=== PATIENT | male | born 1935 | race Caucasian/White ===

== ENCOUNTER 2016-10-20 23:39 | Emergency (ER) | payer OTHER ==
[~2016-10-20] VITALS: Ht 167.6 cm; Wt 74.4 kg
[2016-10-20 23:54] VITALS: BP 159/75; PULSE 68; RESP 18; TEMP 98.1; O2SAT 96
--- NOTE | 2016-10-21 00:31 | PD ---
HPI Chief Complaint: [facility] Problem Time Seen by Provider: 00:24 Travel History International Travel<30 days: No Contact w/Intl Traveler<30days: No Traveled to known affect area: No History of Present Illness HPI The patient is a 81-year-old male that has an indwelling catheter and it got stopped up tonight. He states that he needs to change his catheter every month and it is about time for her to be changed anyway. 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 Instead of opening up his urethra every 6 months it was found better to just leave the catheter in place. He knows when he has a urinary tract infection and denies any dysuria, frequency or urgency or other symptoms of urinary infection. PFSH Social History Tobacco Use: No Review of Systems Except as stated in HPI: all other systems reviewed are Neg Physical Exam Narrative GENERAL: Well-nourished, well-developed patient in no apparent distress. His vital signs show blood pressure 159/75 but are otherwise normal. SKIN: Focused skin assessment warm/dry. HEAD: Normocephalic. EYES: No scleral icterus. No injection or drainage. NECK: Supple, trachea midline. No JVD or lymphadenopathy. CARDIOVASCULAR: Regular rate and rhythm without murmurs, gallops, or rubs. RESPIRATORY: Breath sounds equal bilaterally. No accessory muscle use. GASTROINTESTINAL: Abdomen soft, non-tender, nondistended. The bladder is not distended at this time. MUSCULOSKELETAL: No cyanosis, or edema. BACK: Nontender without obvious deformity. No CVA tenderness. Data Data Last Documented VS Vital Signs Date Time Temp Pulse Resp B/P Pulse Ox O2 Delivery O2 Flow Rate FiO2 10/20/16 23:54 98.1 68 18 159/75 96 Orders Urinary Catheter Insert/Apply (10/21/16 00:24) Urinary Catheter - Remove (10/21/16 00:24) [facility] Medical Decision Making Medical Screen Exam Complete: Yes Emergency Medical Condition: Yes Medical Record Reviewed: Yes Differential Diagnosis Catheter obstruction, need for changing of catheter, UTIunlikely Narrative Course The patient has a catheter obstruction and he needs to have it changed anyway. The catheter will be changed to a 16 Czech which is what he had before. Diagnosis Primary Impression: Catheter (urine) change required Additional Instructions: Good luck with a new catheter. Kaman back if you have any problems. Follow-up with your primary care physician or urologist about this. Med/Other Pt SpecificInfo: No Change to Meds Disposition: 01 DISCHARGE HOME Condition: Stable Manav Francis MD Oct 21, 2016 00:31
[2016-10-21] MEDS ORDERED: ENAL5TAB PO (00:41)
[2016-10-21] MEDS ORDERED: LOVA40TA PO (00:41)
== END 2016-10-21 01:01 | disposition home or self-care (01) ==
LOC: PHED 23:39
DX: T83.091A Other mechanical complication of indwelling urethral catheter, initial encounter (principal); Z85.46 Personal history of malignant neoplasm of prostate
CPT/HCPCS: 51702